=== PATIENT | female | born 1960 | race Hispanic/Latino ===

== ENCOUNTER 2016-07-22 20:13 | Emergency (ER) | payer OTHER ==
[~2016-07-22] VITALS: Ht 162.6 cm; Wt 72.9 kg
[~2016-07-22 20:13] MED LIST: NOHOMEMEDS
[2016-07-22 20:54] LABS: HEMATOCRIT 36.4 % (36.0-46.0); MCH 29.2 PG (29.0-34.0); MCV 88.6 FL (83-99); MEAN PLAT.VOLUME 10.9 uM^3 (9.5-12.4); PLATELET COUNT 245 K/uL (156-360); RBC DIS.WIDTH-CV 12.9 % (11.8-14.6); RBC DIS.WIDTH-SD 41.9 % (39-53); RED BLOOD COUNT 4.11 M/uL (3.80-5.20); WHITE BLOOD COUNT 9.8 K/uL (4.1-10.2)
[2016-07-22 21:05] LABS: CHLORIDE 105 mEq/L (99-109); POTASSIUM 4.1 mEq/L (3.7-5.4); SODIUM 139 mEq/L (136-147)
[2016-07-22 21:07] LABS: GLUCOSE 126 mg/dL (70-99)
[2016-07-22 21:08] LABS: ANION GAP 11 MEQ/L (2-14)
[2016-07-22 21:11] LABS: GFR ESTIMATE (CALCULATED) > 59 mL/min/
[2016-07-22 21:12] LABS: UREA NITROGEN (BUN) 9 mg/dL (9-23)
[2016-07-22 21:14] LABS: TROP-I INTERPRETATION NEGATIVE; TROPONIN-I < 0.01 ng/mL (0.0-0.30)
[2016-07-23 00:14] LABS: TROP-I INTERPRETATION NEGATIVE; TROPONIN-I < 0.01 ng/mL (0.0-0.30)
[2016-07-23 00:51] VITALS: BP 106/60
== END 2016-07-23 00:52 | disposition home or self-care (01) ==
LOC: EME 20:13
PROVIDERS: Emergency Medicine
DX: R07.89 Other chest pain (principal); Z82.49 Family history of ischemic heart disease and other diseases of the circulatory system
CPT/HCPCS: 71020; 80048; 84484; 85027; 93005; 99281; 99284

== ENCOUNTER 2016-08-02 12:06 | Inpatient (IN) | payer OTHER ==
[~2016-08-02] VITALS: Ht 162.6 cm; Wt 71.4 kg
[2016-08-02 13:32] LABS: MCH 28.6 PG (29.0-34.0); MCHC 32.1 G/DL (30.0-36.0); MCV 89.2 FL (83-99); MEAN PLAT.VOLUME 10.3 uM^3 (9.5-12.4); PLATELET COUNT 338 K/uL (156-360); RBC DIS.WIDTH-SD 42.5 % (39-53)
[2016-08-02 13:42] LABS: CHLORIDE 104 mEq/L (99-109); SODIUM 139 mEq/L (136-147)
[2016-08-02 13:44] LABS: GLUCOSE 109 mg/dL (70-99)
[2016-08-02 13:45] LABS: ANION GAP 9 MEQ/L (2-14)
[2016-08-02 13:48] LABS: GFR ESTIMATE (CALCULATED) > 59 mL/min/
[2016-08-02 13:49] LABS: UREA NITROGEN (BUN) 9 mg/dL (9-23)
[2016-08-02 13:54] LABS: TROP-I INTERPRETATION NEGATIVE; TROPONIN-I < 0.01 ng/mL (0.0-0.30)
[2016-08-02 16:05] LABS: TROP-I INTERPRETATION NEGATIVE; TROPONIN-I < 0.01 ng/mL (0.0-0.30)
[2016-08-02] MEDS ORDERED: MOTRIN800 MG PO (16:21)
[2016-08-02] MEDS ORDERED: TYLENOL WITH C1 EACH PO (16:21)
[2016-08-02 17:18] LABS: D-DIMER ELISA > 4.00 mg/L FEU (< 0.57)
[2016-08-02] MEDS ORDERED: PAROXETINE HCL30 MG PO (20:48)
[2016-08-02] MEDS ORDERED: IMITREX50 MG PO (20:48)
[2016-08-02] MEDS ORDERED: ADVIL,NUPRIN,M200 MG PO (20:48)
[2016-08-03] VITALS (7 sets, daily range): BP systolic 90–122; BP diastolic 50–67
[2016-08-03 05:29] LABS: MCH 29.9 PG (29.0-34.0); MCHC 33.5 G/DL (30.0-36.0); MCV 89.1 FL (83-99); MEAN PLAT.VOLUME 10.6 uM^3 (9.5-12.4); PLATELET COUNT 336 K/uL (156-360); RBC DIS.WIDTH-SD 42.1 % (39-53); RED BLOOD COUNT 3.48 M/uL (3.80-5.20); WHITE BLOOD COUNT 8.6 K/uL (4.1-10.2)
[2016-08-03 05:56] LABS: ALKALINE PHOSPHATASE 82 IU/L (3-129); ANION GAP 7 MEQ/L (2-14); CHLORIDE 107 MEQ/L (99-109); GFR ESTIMATE (CALCULATED) > 59 mL/min/; POTASSIUM 4.2 MEQ/L (3.7-5.4); SAMPLE HEMOLYSIS CHECK 0; SAMPLE ICTERIC CHECK 0; SAMPLE LIPEMIA CHECK 0; SODIUM 139 MEQ/L (136-147); TOTAL BILIRUBIN 0.5 MG/DL (0.0-1.0); UREA NITROGEN (BUN) 8 mg/dL (9-23)
[2016-08-03 05:58] LABS: GLUCOSE 179 mg/dL (70-99)
[2016-08-04 00:15] VITALS: BP 108/54
[2016-08-04 08:37] VITALS: BP 96/54
[2016-08-04] MEDS ORDERED: MEDROL DOSEPAK4 MG PO (11:26)
[2016-08-04] MEDS ORDERED: Colchicine,Colcrys PO ×2 (11:26→12:16)
[2016-08-04] MEDS ORDERED: ENDOCET 5-3251 EACH PO (11:26)
[2016-08-04] MEDS ORDERED: IBUPROFEN800 MG PO (11:26)
[2016-08-04 11:34] VITALS: BP 99/55
[2016-08-06 10:39] LABS: ANTI-NUCLEAR AB SCRN/RFLX(ANA) REACTIVE (NONREACTIVE)
[2016-08-06 10:48] LABS: CENTROMERE ANTIBODY 10 U/mL (0-99); HISTONE ANTIBODY 7 U/mL (0-99); JO-1 ANTIBODY 26 U/mL (0-99); SCL-70 (SCLERODERMA) ANTIBODY 21 U/mL (0-99); SM (SMITH) ANTIBODY 416 U/mL (0-99); SS-A (SJOGREN'S) ANTIBODY 30 U/mL (0-99); SS-B (SJOGREN'S) ANTIBODY 10 U/mL (0-99)
== END 2016-08-04 13:24 | disposition home or self-care (01) | DRG 315 ==
LOC: EME 12:06 → EDOF 22:08 → 5WEST 22:08 → 4EAST 08-03 13:04
PROVIDERS: Emergency Medicine; Internal Medicine; Internal Medicine Cardiovascular Disease
DX: I30.9 Acute pericarditis, unspecified (principal); J98.11 Atelectasis; J90 Pleural effusion, not elsewhere classified; F33.9 Major depressive disorder, recurrent, unspecified; G43.909 Migraine, unspecified, not intractable, without status migrainosus; I31.3 Pericardial effusion (noninflammatory); Z80.3 Family history of malignant neoplasm of breast; Z82.49 Family history of ischemic heart disease and other diseases of the circulatory system
CPT/HCPCS: 71020; 71275; 80048; 80053; 84439; 84443; 84481; 84484; 85027; 85379; 85651; 86038; 86140; 86235; 87040; 93005; 93306; 94799; 99281; 99285; G0378; J1644; J1885; J2930; J7040; J7509

== ENCOUNTER 2016-08-09 12:40 | Emergency (ER) | payer OTHER ==
[~2016-08-09] VITALS: Ht 162.6 cm; Wt 69.4 kg
[~2016-08-09 12:40] MED LIST changes: +ADVIL,NUPRIN,M200 MG PO; +Colchicine,Colcrys PO; +ENDOCET 5-3251 EACH PO; +IBUPROFEN800 MG PO; +IMITREX50 MG PO; +MEDROL DOSEPAK4 MG PO; +MOTRIN800 MG PO; +PAROXETINE HCL30 MG PO; +TYLENOL WITH C1 EACH PO
[2016-08-09 14:17] LABS: HEMATOCRIT 42.7 % (36.0-46.0); MCH 28.2 PG (29.0-34.0); MCHC 31.9 G/DL (30.0-36.0); MCV 88.6 FL (83-99); PLATELET COUNT 390 K/uL (156-360); RBC DIS.WIDTH-CV 13.2 % (11.8-14.6); RBC DIS.WIDTH-SD 42.6 % (39-53); RED BLOOD COUNT 4.82 M/uL (3.80-5.20); WHITE BLOOD COUNT 9.2 K/uL (4.1-10.2)
[2016-08-09 14:26] LABS: CHLORIDE 105 mEq/L (99-109); POTASSIUM 4.3 mEq/L (3.7-5.4)
[2016-08-09 14:27] LABS: SODIUM 139 mEq/L (136-147)
[2016-08-09 14:29] LABS: GLUCOSE 93 mg/dL (70-99)
[2016-08-09 14:30] LABS: ANION GAP 9 MEQ/L (2-14)
[2016-08-09 14:31] LABS: TOTAL BILIRUBIN 0.6 mg/dL (0.0-1.0)
[2016-08-09 14:32] LABS: ALKALINE PHOSPHATASE 88 IU/L (3-129); GFR ESTIMATE (CALCULATED) > 59 mL/min/
[2016-08-09 14:34] LABS: UREA NITROGEN (BUN) 14 mg/dL (9-23)
[2016-08-09 14:36] LABS: LIPASE 33 U/L (1.0-51.0)
[2016-08-09 15:34] LABS: ADD MIUA? NO; BILIRUBIN NEGATIVE; BLOOD NEGATIVE; COLOR STRAW ((YELLOW)); GLUCOSE (STRIP) NEGATIVE; KETONES NEGATIVE; LEUKOCYTES NEGATIVE; NITRITE NEGATIVE; PROTEIN (STRIP) NEGATIVE; SPECIFIC GRAVITY 1.008 (1.000-1.030); UCUL ADDED? NO; UROBILINOGEN 0.2 MG/DL (0.2-1.0)
[2016-08-09] MEDS ORDERED: ZOFRAN ODT4 MG PO (16:43)
[2016-08-09 16:54] VITALS: BP 110/68
== END 2016-08-09 16:55 | disposition home or self-care (01) ==
LOC: EXP 12:40 → EME 12:40 → EXP 16:55
PROVIDERS: Physician Assistant
DX: R53.1 Weakness (principal); Z86.19 Personal history of other infectious and parasitic diseases; R11.0 Nausea; R63.0 Anorexia; R51 Headache; R42 Dizziness and giddiness
CPT/HCPCS: 80053; 81003; 83690; 85027; 93005; 99281; 99284; J2405; J7030

== ENCOUNTER 2016-08-27 22:51 | Emergency (ER) | payer OTHER ==
[~2016-08-27] VITALS: Ht 162.6 cm; Wt 71.0 kg
[~2016-08-27 22:51] MED LIST changes: +ZOFRAN ODT4 MG PO
[2016-08-28] MEDS ORDERED: PREDNISONE20 MG PO (00:39)
[2016-08-28] MEDS ORDERED: PEPCID40 MG PO (00:39)
[2016-08-28 01:01] VITALS: BP 128/68
== END 2016-08-28 01:02 | disposition home or self-care (01) ==
LOC: EME 22:51
DX: L25.8 Unspecified contact dermatitis due to other agents (principal); R06.00 Dyspnea, unspecified; R07.89 Other chest pain; T37.3X5A Adverse effect of other antiprotozoal drugs, initial encounter; A04.7 Enterocolitis due to Clostridium difficile
CPT/HCPCS: 99281; 99285; J1200; J2930; J7030; S0028